=== PATIENT | male | born 1980 | race African-American/Black ===

== ENCOUNTER 2016-11-23 14:55 | Emergency (ER) | payer OTHER ==
[2016-11-26] MEDS ORDERED: OXYCODONE HCL5 MG PO (09:18)
[2016-11-26 09:26] VITALS: BMI 32.9
[2016-11-26] MEDS ORDERED: HYDROCODONE-APA1 TAB PO (14:18)
== END 2016-11-23 18:52 | disposition home or self-care (01) ==
LOC: D.ER 14:55
DX: S82.142A Displaced bicondylar fracture of left tibia, initial encounter for closed fracture (principal); W17.89XA Other fall from one level to another, initial encounter; Y93.89 Activity, other specified; Y92.018 Other place in single-family (private) house as the place of occurrence of the external cause

== ENCOUNTER → 2016-11-26 08:21 | Day surgery (SDC) | payer OTHER ==
[~2016-11-26] VITALS: Ht 170.2 cm; Wt 95.3 kg
[~2016-11-26 08:21] MED LIST: HYDROCODONE-APA1 TAB PO; OXYCODONE HCL5 MG PO
[2016-11-26 09:26] VITALS: BP 153/105; Ht 170.2 cm; Wt 95.3 kg
--- NOTE | 2016-11-26 16:15 | NUR ---
IV DC WITH CATHER TIP INTACT HAYLIE HERE FOR CRUTCH TRAINING
--- NOTE | 2016-12-03 10:28 | OP ---
PATIENT NAME: JUVENCIO OLSON MEDICAL RECORD: [id number] :84 LOCATION:[facility] ADMISSION DATE: SURGEON: JIMBO RAZO MD DATE OF OPERATION: 11/26/2016 PREOPERATIVE DIAGNOSIS: Left displaced tibial plateau fracture laterally. POSTOPERATIVE DIAGNOSIS: Left displaced tibial plateau fracture laterally. PROCEDURE PERFORMED: Left tibial plateau open reduction and fixation. SURGEON: Yoni Razo MD. ANESTHESIA: General with a block for postop pain. CONDITION: The patient tolerated the procedure well and was transferred to the recovery room in stable condition at termination of the procedure. INDICATIONS: This is a 36-year-old gentleman who had a fall, injured his knee, presents with a displaced tibial plateau fracture. We discussed risks, benefits, and alternatives of surgery. He understood and wished to proceed. OPERATIVE REPORT: The patient was taken to the operating room and placed in supine position. General anesthesia was obtained. He did have a block place in the preop holding area. In the operating room, his left leg was confirmed to be the correct leg. He did receive Ancef per protocol. Procedure was begun by using his previous incision from a patella fracture. This was taken down. The soft tissue was elevated off the lateral plateau keeping the retractors within the lateral plateau area and not outside of the fibula. This was taken down, elevated around it. I was able to get to the fragment and elevate it. X-rays were taken. I then placed the lateral tibial plateau plate from [employer], placed a compression screw proximally bringing the lateral [employer] and then the plate within the shaft. Following which, I then filled the holes verifying the reduction. He did have a little bit of depression. I did attempt to elevate this with the best I could. Final x-rays overall looks very good. He was copiously irrigated and closed with #1 Vicryl followed by 2-0 Vicryl, then yara. He was awakened and transferred to the recovery room in stable condition, having tolerated the procedure well. TRANSINT:[id number] Voice Confirmation ID: [id number] DOCUMENT ID: [id number] JIMBO RAZO MD at 1028 CC: [id number] DICTATION DATE: 11/26/16 1500 MOVERS: 11/26/16 1548 [facility] 11/26/16 [facility] [address] [place] [address]
== END | disposition home or self-care (01) ==
LOC: D.OPS 08:21
DX: S82.142A Displaced bicondylar fracture of left tibia, initial encounter for closed fracture (principal); W19.XXXA Unspecified fall, initial encounter; Z72.0 Tobacco use